=== PATIENT | female | born 1980 | race Caucasian/White ===

== ENCOUNTER 2018-06-10 16:08 | Emergency (ER) | payer MEDICAID ==
[2018-06-10 16:15] VITALS: BP 135/83
[2018-06-10] MEDS ORDERED: fentaNYL 100 MCG/2 ML INJ ONE (16:38)
[2018-06-10] MEDS ORDERED: fentaNYL 100 MCG/2 ML INJ IVP ONE (16:46)
--- NOTE | 2018-06-10 16:50 | EDPHY ---
H & P Time Seen by Provider: 06/10/18 16:20 HPI/ROS: HPI Shoulder injury. 38-year-old female, right-hand dominant, she was hiking with her boyfriend when she slipped and fell backwards on an outstretched right upper extremity. She heard a pop in her right shoulder. She presents to the emergency department with her boyfriend another friend with complaint of isolated right shoulder pain and deformity. She denies any prior injury or problem involving her right shoulder. She denies any other injury. She did not hit her head. No neck pain. ROS: Constitutional: No fever, no chills. No weakness. Musculoskeletal: No back pain. No neck pain. No myalgias or arthralgias. Skin: No rashes. Neurological: No headache. No focal weakness or altered sensation. Past medical history: She denies any significant past medical history. Social history: Nonsmoker. No alcohol. As above. Physical Exam: General Appearance: Alert, no distress. This patient is responding to questions appropriately and in full sentences. This patient appears well- hydrated and well-nourished. Head: Normocephalic atraumatic. Eyes: Pupils equal and round no pallor or injection. No lid edema, erythema or injection. Right shoulder exam: Significant for a anterior, inferior glenohumeral joint dislocation deformity. The axillary nerve distribution is intact. The right upper extremity is intact. There is no pain on palpation of the proximal humerus. Neurological: Motor sensory function is grossly intact. Cranial nerves are normal. Gait is normal. Skin: Warm and dry, no rashes. No lacerations or abrasions. Musculoskeletal: Neck is supple and nontender. Extremities are symmetrical except noted. All joints range without pain or impingement except for the right shoulder. Psychiatric: No agitation. No depression. Database: EKG: Imaging: Right shoulder x-ray series: Significant for anterior inferior glenohumeral joint deformity. Otherwise an unremarkable study. Interpreted by me. Post reduction right shoulder x-ray series: Properly reduced glenohumeral joint with normal anatomic alignment. No fracture noted. Interpreted by me. Procedures: Procedure: Dislocation reduction of right shoulder. The shoulder was reduced in the usual fashion without complications. Post reduction the patient's neurovascular exam is normal. Post reduction x-ray demonstrates reduction of the joint to the anatomic position. The procedure was performed by myself. Emergency department course: Triage vital signs reviewed and are normal. An IV was placed in triage. The patient was given 50 mcg of IV fentanyl. Reduction of right shoulder glenohumeral joint dislocation as noted above. The patient was placed in a sling. She feels comfortable going home with family he will be driving. He was observed in the emergency department for another 45 min post reduction. Her pain is completely relieved. The right upper extremity is neurovascularly intact. Orthopedic follow-up and return to emergency department precautions reviewed with her. All of her questions were answered. She was discharged from the emergency department in good condition with friends were driving. Differential Diagnosis: The differential diagnosis on this patient includes but is not limited to right shoulder glenohumeral joint dislocation. AC joint injury, clavicular injury, proximal humerus injury, traumatic brain injury unlikely. This represents a partial list of diagnoses considered. These considerations are based on history , physical exam, past history, reassessment and diagnostic testing. Smoking Status: Never smoked Constitutional: Initial Vital Signs Temperature (C) 36.4 C 06/10/18 16:12 Heart Rate 83 06/10/18 16:12 Respiratory Rate 16 06/10/18 16:12 Blood Pressure 135/83 H 06/10/18 16:12 O2 Sat (%) 99 06/10/18 16:12 O2 Delivery Mode Room Air Allergies/Adverse Reactions: No Known Allergies Allergy (Unverified 06/10/18 16:15) Home Medications: Medication Instructions Recorded NK [No Known Home Meds] 09/02/15 Departure - Departure Disposition: Home, Routine, Self-Care Clinical Impression: Dislocation of right shoulder joint Condition: Good Instructions: Shoulder Dislocation (ED) Additional Instructions: Read and follow provided instructions. Follow-up with Orthopedics, Dr. Valladares or 1 of his partners in 2-3 days for re- evaluation of your right shoulder injury. Ibuprofen dosin mg every 6 hours with meals for the next 3 days only. Take only as needed for pain. Return to the emergency department for worsening pain, swelling, discoloration, loss of sensation or weakness in your right upper extremity or other serious concerns. Referrals: Oni Valladares MD [Medical Doctor] - As per Instructions
== END 2018-06-10 17:15 | disposition home or self-care (01) ==
PROC: 0RSJXZZ Reposition Right Shoulder Joint, External Approach (ICD-10-PCS; principal; 2018-06-10)
DX: S43.014A Anterior dislocation of right humerus, initial encounter (principal); W01.0XXA Fall on same level from slipping, tripping and stumbling without subsequent striking against object, initial encounter; Y93.01 Activity, walking, marching and hiking
CPT/HCPCS: 96374; J3010; L3980